=== PATIENT | female | born 1945 | race Caucasian/White ===

== ENCOUNTER 2022-02-09 17:44 | Emergency (ER) | payer OTHER ==
[~2022-02-09 17:44] MED LIST: ASPIRIN CHEWABL81 MG PO; COREG 12.5MG12.5 MG PO; COZAAR100 MG PO; COZAAR50 MG PO; IMDUR ER TAB 3030 MG PO; K-DUR TAB 10 M10 MEQ PO; K-DUR TAB 20 M20 MEQ PO; LASIX20 MG PO; LASIX40 MG PO; LIPITOR TAB 2020 MG PO
[2022-02-09 18:54] LABS: HEMOGLOBIN 11.8 gm/dl (12.3-15.3); RED BLOOD COUNT 5.01 M/UL (4.00-5.10); WHITE BLOOD COUNT 8.7 K/UL (4.5-11.0)
== END 2022-02-09 21:44 | disposition home or self-care (01) ==
LOC: ER1 17:44
PROVIDERS: Emergency Medicine
DX: R04.0 Epistaxis (principal); I11.9 Hypertensive heart disease without heart failure; Z95.1 Presence of aortocoronary bypass graft; Z79.82 Long term (current) use of aspirin; Z79.02 Long term (current) use of antithrombotics/antiplatelets
CPT/HCPCS: 85025; 99283